=== PATIENT | female | born 1990 ===

== ENCOUNTER 2023-10-04 06:11 | Inpatient (IN) | payer BC ==
[~2023-10-04] VITALS: Ht 172.7 cm; Wt 90.5 kg
[2023-10-04] VITALS (63 sets, daily range): BP systolic 89–140; BP diastolic 48–75; PULSE 56–87; TEMP 97.4–97.9
[2023-10-04] MEDS ORDERED: FERROUS SU325 MG/TAB PO (06:44)
[2023-10-04] MEDS ORDERED: PRENATAL TABLET PO (06:44)
[2023-10-04] MEDS ORDERED: LR & Oxytocin 500 ML IV SCH (06:45)
[2023-10-04] MEDS ORDERED: LR 1,000 ML IV SCH (06:45)
--- NOTE | 2023-10-04 07:00 | NUR ---
0620- Pt arrives ambulatory with for scheduled induction of labor. Oriented to room. Pt into bathroom to change into gown. 0629- Pt into bed. EFM and TOCO on and tracing well. O2 sat monitor applied and tracing maternal HR. Assessments completed. 0625- IV start without difficulty, labs obtains. Pt tolerated procedure well.
[2023-10-04 07:14] LABS: BASO % 0.1 % (0.0-2.0); EOS # 0.2 K/mm3 (0.0-0.7); EOS % 1.1 % (0.0-4.0); GRAN # 10.5 K/mm3 (1.4-6.5); LYMPH # 3.4 K/mm3 (1.2-3.4); LYMPH % 22.3 % (20.0-51.0); MEAN CELL VOLUME 93 fl (80.0-100.0); MEAN CORPUSCULAR HEMOGLOBIN 31 pg (27-31); MEAN CORPUSCULAR HGB CONC 33 g/dl (33.0-37.0); MEAN PLATELET VOLUME 11.6 fl (7.4-10.4); MONO # 1.1 K/mm3 (0.1-0.6); PLATELET COUNT 222 K/mm3 (130-400); RED BLOOD COUNT 3.87 M/mm3 (4.10-5.30); REDCELL DISTRIBUTION WIDTH-CV 14.1 % (11.5-14.5)
[2023-10-04 07:15] LABS: HEMATOCRIT 35.9 % (37.0-47.0)
--- NOTE | 2023-10-04 08:15 | NUR ---
0815- Discussed laying flat on back and concerns with blood flow. Pt elevates HOB and pillow provided to wedge hip.
[2023-10-04] MEDS ORDERED: ePHEDrine 50 MG/10 ML VIAL IV PRN (08:45)
[2023-10-04] MEDS ORDERED: diphenhydrAMINE 25 MG CAP PO PRN (08:45)
[2023-10-04] MEDS ORDERED: Naloxone 0.4 MG/ML VIAL IV PRN (08:45)
[2023-10-04] MEDS ORDERED: Ondansetron 4 MG/2 ML VIAL IV PRN (08:45)
[2023-10-04] MEDS ORDERED: diphenhydrAMINE 50 MG/ML 1 ML VIAL IV PRN (08:45)
[2023-10-04] MEDS ORDERED: ROPivacaine PF 0.2% 200 ML IV ONE (10:53)
--- NOTE | 2023-10-04 11:19 | NUR ---
Pt assisted to LL. Ephedrine given per Anesthesia order. IVF bolus continues.
--- NOTE | 2023-10-04 12:00 | NUR ---
1140- Mcintosh placed without difficulty. SVE by this RN. Pt repositioned to semi-fowlers and WL. 1157- Pt updated on POC, Pitocin off per MD order. Pt repostioned to RL with LLS.
--- NOTE | 2023-10-04 13:16 | NUR ---
1316 THIS RN IN ROOM TO REPOSITION PT. PT MOVED WR AND GIVEN LR BOLUS. PT TOLERATED WELL. VS STABLE. EFM CAT 2.
--- NOTE | 2023-10-04 14:45 | NUR ---
1432- Pt assisted to LL, side lying hip release. This RN remains at bedside. 1439- Pt assisted to RL, side lying hip release, this RN remains at bedside. 1449- Pt assisted to high-fowlers. Pt tolerated position changes well.
--- NOTE | 2023-10-04 15:30 | NUR ---
1526- Pt assisted to LL with RLS. FHR US adjusted and heart tones noted to be in the 130's, remained 130's-140's for approx 4.5 mins before returning to baseline of 155 bpm.
--- NOTE | 2023-10-04 17:00 | NUR ---
1649- Dr Roles at bedside. SVE /-2. MD gives this RN VORB to restart Pitocin at 4mu. Informed Dr Roles that Pitocin had been off for more than 30mins but MD okay with starting at 4mu. Pt assisted to Za position. EFM and TOCO adjusted. FHR baseline change noted. remains at nurses station.
--- NOTE | 2023-10-04 17:48 | NUR ---
1734- Dr Sales and this RN to bedside, Pt reports feeling vaginal pressure. SVE by , complete. MD remains at bedside. Pt and room prepped for delivery. Ambrocio, nursery RN and Elton, insulation cupola charger at bedside. 1745- Pt begins pushing with UCs. 1747- of viable female . Pitocin stopped. 1752- Spontaneous delivery of placenta. Pitocin restarted at 333mL/hr. Fundus massaged to firm by . Heavy bleeding noted. Methergine given IM, TXA given IV, see EMAR. Bleeding improves with meds and massage. Pericare completed. new chux and ice pack to perineum. Pt repositioned to high fowlers, warm blankets provided.
[2023-10-04] MEDS ORDERED: Methylergonovine 0.2 MG/ML 1 ML AMPUL IM SCH (17:53)
[2023-10-04] MEDS ORDERED: Tranexamic Acid 1,000 MG/10 ML VIAL IV SCH (18:00)
[2023-10-04] MEDS ORDERED: Magnes Hydrox (MOM) 80 MG/ML 30 ML CUP PO PRN (18:15)
[2023-10-04] MEDS ORDERED: Loratadine 10 MG TAB PO PRN (18:15)
[2023-10-04] MEDS ORDERED: Measles/Mumps/Rubella Virus Vaccine Live w Diluent 0.5 ML VIAL SQ SCH (18:15)
[2023-10-04] MEDS ORDERED: Ibuprofen 800 MG TAB PO SCH (18:15)
[2023-10-04] MEDS ORDERED: Phenylephrine/Mineral Oil/Petrolatum 57 GM TUBE RC PRN (18:15)
[2023-10-04] MEDS ORDERED: Mag/Al Hydrox/Simeth Susp 30 ML CUP PO PRN (18:15)
[2023-10-04] MEDS ORDERED: Witch Hazel 50% Pads Bulk TUB TP PRN (18:15)
--- NOTE | 2023-10-04 20:15 | NUR ---
Pt unable to bend L knee, able to move R leg. Up to bathroom with 'Tatum Steady' Voids large amount, performs own pericare. Pad,panties and clean gown on. To room via 'tatum steady'. oriented to room, plan of care. Pt and spouse instructed that pt is not to get out of bed without staff assistance. Pt and spouse verbalize understanding.
[2023-10-04] MEDS ORDERED: traZODone 50 MG TAB PO PRN (21:00)
[2023-10-05] MEDS ORDERED: Acetaminophen 500 MG TAB PO PRN ×2 (01:45→06:00)
[2023-10-05 06:39] VITALS: BP 109/61; PULSE 76; TEMP 97.7
--- NOTE | 2023-10-05 06:45 | NUR ---
THIS RN AT PT BEDSIDE ASSESSING PT AND INFANT AND DISCUSSING PT PLAN OF CARE. PT REPORTS WANTING TO DISCHARGE TODAY IF POSSIBLE. THIS RN DISCUSSES INFANT 24HR LABS THAT NEED TO BE DONE AROUND 1730.
[2023-10-05 07:45] VITALS: BP 109/61; PULSE 76; TEMP 97.8
[2023-10-05] MEDS ORDERED: Sennosides/Docusate 8.6-50 MG TAB PO SCH (08:00)
[2023-10-05] MEDS ORDERED: IBU800 M1 PO (08:17)
[2023-10-05] MEDS ORDERED: Prenatal Vitamins/Iron/FA TAB PO SCH (09:00)
--- NOTE | 2023-10-05 12:45 | NUR ---
Data: [employer] visit offered during [employer] rounds. Patient declined. Assessment: None Plan of Care: Chaplains will remain available as needed/requested while Patient is admitted to this hospital.
--- NOTE | 2023-10-05 19:35 | NUR ---
discharge instructions reviewed with pt. Questions invited and answered. Ambulatory off unit with spouse and infant.
== END 2023-10-05 19:35 | disposition home or self-care (01) | DRG 806 ==
LOC: LDRO 06:11 → OB 06:30 → LDR 06:30 → OB 20:15
PROVIDERS: ADMIT Obstetrics & Gynecology
PROC: 10E0XZZ Delivery of Products of Conception, External Approach (ICD-10-PCS; principal; 2023-10-04)
PROC: 0UQMXZZ Repair Vulva, External Approach (ICD-10-PCS; 2023-10-04)
PROC: 3E033VJ Introduction of Other Hormone into Peripheral Vein, Percutaneous Approach (ICD-10-PCS; 2023-10-04)
PROC: 10907ZC Drainage of Amniotic Fluid, Therapeutic from Products of Conception, Via Natural or Artificial Opening (ICD-10-PCS; 2023-10-04)
DX: O76 Abnormality in fetal heart rate and rhythm complicating labor and delivery (principal); O72.1 Other immediate postpartum hemorrhage; Z37.0 Single live birth; O69.81X0 Labor and delivery complicated by cord around neck, without compression, not applicable or unspecified; I95.9 Hypotension, unspecified; O99.892 Other specified diseases and conditions complicating childbirth; O70.0 First degree perineal laceration during delivery; Z3A.39 39 weeks gestation of pregnancy
CPT/HCPCS: J2210; J2590; J2795; J7120